=== PATIENT | female | born 1970 | race Hispanic/Latino ===

== ENCOUNTER 2020-08-13 14:53 | Emergency (ER) | payer OTHER ==
[~2020-08-13] VITALS: Ht 149.9 cm; Wt 115.7 kg
[~2020-08-13 14:53] MED LIST: LOSARTAN POTASS25 MG PEG
--- OUTSIDE RECORDS SUMMARY | 2020-08-13 15:57 | XMS REPORT | Continuity of Care Document ---
Author Author [facility] Organization [facility] Address [address] [place] [address] Phone Unavailable Care Team Providers [employer] Officer Name Role Phone Unavailable Unavailable Payers Payer Name Policy Type Policy Number Effective Date Expiration Date S ource Problems This patient has no known problems. Allergies, Adverse Reactions, Alerts Allergy Name Allergy Type Status Severity Reaction(s) Onset Date Inacti ve Date Treating Clinician Comments Source Penicillins DA Active 2018-03-04 00:00:00 [facility] pineapple DA Active 2018-03-04 00:00:00 [facility] pineapple FA Active 2018-03-04 00:00:00 [facility] Medications This patient has no known medications. Procedures This patient has no known procedures. Results Test Description Test Time Test Comments Results Result Comments Source TROPONIN-I RAPID 2019-04-30 05:24:00 Test Item TROPONIN-I RAPID (test code = TROPIRAP) 0.00 ng/mL 0.00-0.08 N Performed by certified borematic operator at [facility] Negative: <= 0.08 Positive: >= 0.09An elevated troponin value alone is not sufficient todiagnose a myocardial infarction. Rather, the patient sclinical presentation (history, physical exam) and ECGshould be used in conjunction with troponin in thediagnostic evaluation of suspected myocardial infarction. Aserial sampling protocol is recommended to facilitate the identification of temporal changes in troponin levels characteristic of CA. URINALYSIS [id number] 03:41:00* Test Item Value Reference Range Interpretation Comments UA COLOR (test code = COLU) YELLOW YEL/STRAW UA APPEARANCE (test code = APPU) CLOUDY CLEAR A UA GLUCOSE DIPSTICK (test code = DGLUU) NEGATIVE NEGATIVE UA BILIRUBIN DIPSTICK (test code = BILU) NEGATIVE NEGATIVE UA KETONE DIPSTICK (test code = KETU) NEGATIVE NEGATIVE UA SPECIFIC GRAVITY (test code = SGU) 1.027 1.005-1.030 N UA BLOOD DIPSTICK (test code = RICKY) NEGATIVE NEGATIVE UA PH DIPSTICK (test code = JANEY) 6.0 5.0-7.0 N UA PROTEIN DIPSTICK (test code = PROU) NEGATIVE NEGATIVE UA UROBILINIOGEN DIPSTICK (test code = URO) 0.2 mg/dL 0.2-1.0 UA NITRITE DIPSTICK (test code = RANDY) NEGATIVE NEGATIVE UA LEUKOCYTE ESTERASE DIPSTICK (test code = LEUU) TRACE NEGA TIVE A UA WBC (test code = WBCU) 21-50 WBC/HPF 0-3 A UA RBC (test code = RBCU) 21-50 RBC/HPF 0-3 UA BACTERIA (test code = BACU) TRACE /HPF NONE SEEN UA SQUAMOUS CELLS (test code = SQU) 0-5 /HPF NONE SEEN UA MUCUS (test code = MUCU) TRACE /LPF NONE SEEN B-TYPE NATRIURETIC [id number] 02:09:00* Test Item Value Reference Range Interpretation Comments B-TYPE NATRIURETIC PEPTIDE (test code = BNP) 10.5 PG/ML 0-100 N - XR CHEST 1 [id number] 02:08:00 FAX: Tulio Mcqueen I [phone] [place]: St: [facility] FAX: Omar Rudolph MD [phone] Name: TOMMY CÁRDENAS [facility] : 1970 Age/S: 48/F [address] [place] [address] Unit #: [id number] Loc: [address] [place] [id number] Phys: Omar Rudolph MD Acct: [id number] Dis Date: Status: REG ER PHONE #: [phone] Exam Date: 04/30/2019205 FAX #: [phone] Reason: Chest Pain EXAMS: CPT CODE: [id number] XR CHEST 1 V [id number] Chest, single view dated 04/30/2019. HISTORY: Chest pain. Comparison is made to a prior study dated 07/07/2018. The heart is normal in size. The cardiomediastinal shadow is stable. The lungs appear clear. The pulmonary vasculature is normal in caliber. No acute pleural space abnormalities are detected. IMPRESSION: 1. No radiographic evidence of acute cardiopulmonary disease. SL: 131 at 0208 Reported and signed by: Arley Sheikh M.D. CC: Tulio Walker MD; Omar Rudolph MD Technologist: RT Carissa(R) Trnscrd Date/Time/By: 04/30/2019 (020) : By: GarimaM Orig Print D/T: S: 04/30/2019 (021) PAGE 1 Signed Report BASIC METABOLIC [id number] 02:03:00* Test Item Value Reference Range Interpretation Comments SODIUM (test code = NA) 145 mEq/L 134-147 N POTASSIUM (test code = K) 4.0 mEq/L 3.4-5.0 N CHLORIDE (test code = CL) 108 mEq/L 100-108 N CARBON DIOXIDE (test code = CO2) 32 mEq/L 21-33 N ANION GAP (test code = GAP) 9 0-20 N GLUCOSE (test code = GLU) 109 mg/dL 70-110 N BLOOD UREA NITROGEN (test code = BUN) 23 mg/dL 7-18 H GLOMERULAR FILTRATION RATE (test code = GFR) 106.7 95-105 H Units of measure = ml/min/1.73 m2 CREATININE (test code = CREAT) 0.6 mg/dL 0.6-1.3 N CALCIUM (test code = CA) 8.4 mg/dL 8.0-10.5 N HEPATIC FUNCTION [id number] 02:03:00* Test Item Value Reference Range Interpretation Comments TOTAL PROTEIN (test code = PROT) 7.2 g/dL 6.4-8.2 N ALBUMIN (test code = ALB) 3.40 g/dL 3.4-5.0 N BILIRUBIN TOTAL (test code = BILT) 0.10 mg/dL 0.0-1.0 N BILIRUBIN DIRECT (test code = BILD) < 0.10 MG/DL 0.0-0.30 N BILIRUBIN INDIRECT (test code = BILIND) 0.00 MG/DL SGOT/AST (test code = AST) 14 IUnit/L 15-37 L SGPT/ALT (test code = ALT) 16 IUnit/L 15-65 N ALKALINE PHOSPHATASE TOTAL (test code = ALKP) 97 IUnit/L 20-125 N [id number] 02:03:00* Test Item Value Reference Range Interpretation Comments LIPASE (test code = LIP) 136 IUnit/L 73-393 N [id number] 02:03:00* Test Item Value Reference Range Interpretation Comments TROPONIN-I (test code = TROPI) < 0.015 ng/mL 0.000-0.045 N Negative: <= 0.045 Positive: >= 0.046 Correlation with serial results, other cardiac markers andclinical findings is necessary to determine the clinicalsignificance of this result. Results using different methodologies should not be comparedto one another as quantitative results may vary by method. [id number] 01:55:00* Test Item Value Reference Range Interpretation Comments D-DIMER (test code = DDIMER) 388 ng/mlFEU <=500 N THROMBOSIS AND/OR PULMONARY EMBOLISM AND THE CLINICAL CUT- OFF VALUE FOR EXCLUSION (500 ng/mL FEU) OF THESE CONDITIONSIS VALIDATED BY THE RESOURCE TEACHER OF THE METHOD. A NEGATIVE D-DIMER RESULT WHEN COMBINED WITH A CLINICALASSESSMENT OF LOW PRETEST PROBABILITY HAS BEEN SHOWN TO HAVEA HIGH NEGATIVE PREDICTIVE VALUE OF DVT OR PE. D-DIMER VALUES >500 ng/mL FEU ARE NOT DIAGNOSTIC FOR DVT, PEor DIC WITHOUT OTHER CONFIRMATORY TESTS AND APPROPRIATECLINICAL EUALUATIONS. CBC W/AUTO [id number] 01:46:00* Test Item Value Reference Range Interpretation Comments WHITE BLOOD CELL (test code = WBC) 6.56 x10 3/uL 4.5-11.0 N RED BLOOD CELL (test code = RBC) 3.98 x10 6/uL 3.54-5.02 N HEMOGLOBIN (test code = HGB) 11.2 g/dL 11.0-15.0 N HEMATOCRIT (test code = HCT) 35.2 % 33.0-45.0 N MEAN CELL VOLUME (test code = MCV) 88.4 fL 81.0-99.0 N MEAN CELL HGB (test code = MCH) 28.1 pg 27.0-33.0 N MEAN CELL HGB CONCETRATION (test code = MCHC) 31.8 g/dL 33.0-37. 0 L RED CELL DISTRIBUTION WIDTH CV (test code = RDW) 13.9 % 11.5- 14.5 N RED CELL DISTRIBUTION WIDTH SD (test code = RDW-SD) 45.3 fL 37 .0-54.0 N PLATELET COUNT (test code = PLT) 270 x10 3/uL 150-400 N MEAN PLATELET VOLUME (test code = MPV) 9.9 fL 7.0-9.0 H NEUTROPHIL % (test code = NT%) 59.3 % 56.0-77.0 N IMMATURE GRANULOCYTE % (test code = IG%) 0.3 % 0.0-2.0 N LYMPHOCYTE % (test code = LY%) 31.7 % 14.0-32.0 N MONOCYTE % (test code = MO%) 7.6 % 4.8-9.0 N EOSINOPHIL % (test code = EO%) 0.8 % 0.3-3.7 N BASOPHIL % (test code = BA%) 0.3 % 0.0-2.0 N NUCLEATED RBC % (test code = NRBC%) 0.0 % 0-0 N NEUTROPHIL # (test code = NT#) 3.89 x10 3/uL 2.0-7.6 N IMMATURE GRANULOCYTE # (test code = IG#) 0.02 x10 3/uL 0.00-0.03 N LYMPHOCYTE # (test code = LY#) 2.08 x10 3/uL 1.0-3.8 N MONOCYTE # (test code = MO#) 0.50 x10 3/uL 0.1-0.8 N EOSINOPHIL # (test code = EO#) 0.05 x10 3/uL 0.0-0.2 N BASOPHIL # (test code = BA#) 0.02 x10 3/uL 0.0-0.2 N NUCLEATED RBC # (test code = NRBC#) 0.00 x10 3/uL 0.0-0.1 N MANUAL DIFF REQUIRED (test code = MDIFF) NO - DUP VEIN [id number] 22:44:00 Name: TOMMY CÁRDENAS [facility] : 1970 Age/S: 48 / F [address] [place] [address] Unit #: [id number] Loc: [place] [address] Phys: Chris Jordan Acct: [id number] Dis Date: Status: REG ER PHONE #: [phone] Exam Date: 11/23/20182226 FAX #: [phone] Reason: RLE SWELLING AND PAIN EXAMS: CPT CODE: [id number] DUP VEIN UNI/LTD 68651 PROCEDURE: RIGHT UNILATERAL LOWER EXTREMITY VENOUS ULTRASOUND INDICATION: Acute generalized edema of the right leg. Acute right leg pain and tenderness. COMPARISON: None. TECHNIQUE: Sonographic evaluation of the right lower extremity veins was performed using high resolution B-mode, pulse and color Doppler imaging. FINDINGS: The common femoral, femoral, popliteal and visualized calf veins are patent. Normal venous waveforms. The saphenofemoral junction is unremarkable. IMPRESSION: 1. No deep venous thrombosis in the right leg. SL:01 at 2244 Reported and signed by: Anthony Quinn M.D. CC: Rossy Santizo MD; Chris RAMOS Technologist: Whit Rizvi RDMS(Randal)(OB) Trnscb Date/Time: 11/23/2018 (7191) KleberJ Orig Print D/T: S: 11/23/2018 (9325) Probe: PAGE 1 Signed Report - XR KNEE 1 OR 2 V [id number] 22:39:00 FAX: Rossy Velasquez MD [phone] [place]: St: REG FAX: Chris Jordan [phone] Name: TOMMY CÁRDENAS [facility] : 1970 Age/S: 48/F [address] [place] [address] Unit #: [id number] Loc: [place] [place] [address] Phys: Chris Jordan Acct: [id number] Dis Date: Status: REG ER PHONE #: [phone] Exam Date: 11/23/20182237 FAX #: [phone] Reason: L knee pain and swelling EXAMS: CPT CODE: [id number] XR KNEE 1 OR 2 V [place] [address]74 Clinical Indication: L knee pain and swelling; Comparison: None FINDINGS: AP, and lateral 2 views of the right knee show normal alignment without fractures or dislocations. Severe d egenerative changes are seen in the tricompartment joint spaces, most sign ificant in the medial and patellofemoral compartment. The medial and late ral tibiofemoral compartments and patellofemoral compartment are unr emarkable. There are no joint bodies. There is mild knee region soft tissu e swelling. There is a small joint effusion. There are no radiopaque forei gn bodies. If there is further concern, recommend follow-up radio graphs or MRI for complete assessment. IMPRESSION: 1. No acute fracture or dislocation of the right knee. 2. Severe osteo arthritis of the right knee. SL: [id number] Electronically Signed by Michael Zabala on 019 at 2239 Reported and signed by: Aaron Zabala M.D. CC: Rossy Santizo MD; Chris RAMOS Technolog ist: RT Keo(R)(M) Trnscrd Date/Time/By : 11/23/2018 (4429) : By: KaileeLNV Orig Print D/T: S: 11/23/2018 (224 3) PAGE 1 Signed Report
[2020-08-13] MEDS ORDERED: KETOROLAC TROMETHAMINE 30 MG/ML VIAL IV STA (16:32)
[2020-08-13] MEDS ORDERED: KETOROLAC TROMETHAMINE 30 MG/ML VIAL ONE (16:35)
--- NOTE | 2020-08-13 16:37 | Diagnostic Imaging Report ---
EXAM: EXAM: CT ABDOMEN AND PELVIS WITHOUT CONTRAST FOR RENAL STONES CLINICAL INDICATION: Right lower quadrant pain TECHNIQUE: CT abdomen and pelvis was performed, without IV or oral contrast, as per department renal stone protocol. Axial, sagittal, and coronal reconstructions were obtained. IV CONTRAST: Not administered, limiting sensitivity of this exam for evaluation of solid visceral organs, vascular structures, and retroperitoneum. ORAL CONTRAST:Not administered, limiting sensitivity of this exam for evaluation of bowel, retroperitoneum, and intraabdominal fluid collections. RADIATION DOSE REDUCTION: This exam was performed according to the departmental dose-optimization program which includes automated exposure control, adjustment of the mA and/or kV according to patient size and/or use of iterative reconstruction technique. COMPARISON: None FINDINGS: LOWER CHEST: Minimal discoid atelectasis in the left lung base. RIGHT KIDNEY: Normal size and contour. No nephrolithiasis. No hydronephrosis. RIGHT URETER: Normal course and caliber. No ureterolithiasis. LEFT KIDNEY: Normal size and contour. No nephrolithiasis. No hydronephrosis. LEFT URETER: Normal course and caliber. No ureterolithiasis. URINARY BLADDER: Unremarkable. No calculi. LIVER: No pathologic process. GALLBLADDER: Status post cholecystectomy BILE DUCTS: No pathologic process. PANCREAS: No pathologic process. SPLEEN: No pathologic process. ADRENALS: No pathologic process. GASTROINTESTINAL TRACT: No pathologic process. APPENDIX: No inflammatory changes in region of appendix.] LYMPH NODES: No lymphadenopathy. PERITONEUM/MESENTERY: No free air, significant free fluid, mass or fluid collection. VESSELS: No vascular abnormality. ADDITIONAL RETROPERITONEAL FINDINGS: None. REPRODUCTIVE ORGANS: No pathologic process. ABDOMINAL AND PELVIC ROBISON: Fat-containing nonobstructive umbilical hernia. MUSCULOSKELETAL: Much compression of T11 vertebra ADDITIONAL FINDINGS: None. IMPRESSION: No evidence of urinary tract calculi. Patchy compression of T11 vertebra. Likely chronic. Standardized Report: [id number]. CLINICAL INDICATION: TECHNIQUE: CT abdomen and pelvis was performed, without IV or oral contrast, as per department renal stone protocol. Axial, sagittal, and coronal reconstructions were obtained. IV CONTRAST: Not administered, limiting sensitivity of this exam for evaluation of solid visceral organs, vascular structures, and retroperitoneum. ORAL CONTRAST:Not administered, limiting sensitivity of this exam for evaluation of bowel, retroperitoneum, and intraabdominal fluid collections. RADIATION DOSE REDUCTION: This exam was performed according to the departmental dose-optimization program which includes automated exposure control, adjustment of the mA and/or kV according to patient size and/or use of iterative reconstruction technique. COMPARISON: None FINDINGS: LOWER CHEST: No pathologic process in imaged portion of lower chest RIGHT KIDNEY: Normal size and contour. No nephrolithiasis. No hydronephrosis. RIGHT URETER: Normal course and caliber. No ureterolithiasis. LEFT KIDNEY: Normal size and contour. No nephrolithiasis. No hydronephrosis. LEFT URETER: Normal course and caliber. No ureterolithiasis. URINARY BLADDER: Unremarkable. No calculi. LIVER: No pathologic process. GALLBLADDER: BILE DUCTS: No pathologic process. PANCREAS: No pathologic process. SPLEEN: No pathologic process. ADRENALS: No pathologic process. GASTROINTESTINAL TRACT: No pathologic process. APPENDIX: No inflammatory changes in region of appendix.] LYMPH NODES: No lymphadenopathy. PERITONEUM/MESENTERY: No free air, significant free fluid, mass or fluid collection. VESSELS: No vascular abnormality. ADDITIONAL RETROPERITONEAL FINDINGS: None. REPRODUCTIVE ORGANS: No pathologic process. ABDOMINAL AND PELVIC ROBISON: No pathologic process. MUSCULOSKELETAL: No pathologic process. ADDITIONAL FINDINGS: None. IMPRESSION: No evidence of urinary tract calculi. Standardized Report: [id number]. Signed by: Aiden Mims MD on 08/13/2020 4:33 PM
--- NOTE | 2020-08-13 16:44 | Emergency Department Note ---
History of Present Illnes History of Present Illness Chief Complaint: Abdominal Complaints History of Present Illness This is a 49 year old female Chief Complaint Comment PT COMPLAINS OF LRQ AB PAIN THAT STARTED LAST NIGHT PT STATED PAIN RADIATES TO HER RIGHT FLANK, PT DENIES URINARY ISSUES, PT DENIES N/V/D, NO DISTRESS NOTED IN TRIAGE, VITAL SIGNS STABLE . Historian: Patient Arrival Mode: Car Onset (how long ago): day(s) (2) Location: RLQ PAIN Quality: SHARP Radiation: Reports abdomen Severity: moderate Onset quality: gradual Duration (how long): day(s) (2) Timing of current episode: intermittent Progression: waxing and waning Chronicity: new Relieving factors: none Exacerbating factors: none Associated symptoms: Denies denies other symptoms, Denies confusion, Denies chest pain, Denies cough, Denies diaphoresis, Denies fever/chills, Denies headaches, Denies loss of appetite, Denies malaise, Denies nausea/vomiting, Denies rash, Denies seizure, Denies shortness of breath, Denies syncope, Denies weakness, Denies other Treatments prior to arrival: none Past Medical/Family History Physician Review I have reviewed the patient's past medical and family history. Any updates have been documented here. Past Medical History Recent Fever: No Clinical Suspicion of Infectio: No New/Unexplained Change in Ment: No Past Medical History: Hypertension, Diabetes, Osteoarthritis Other Medical History: BREAST CANCER ARTHRITIS NEUROPATHY Past Surgical History: Cholecysctectomy, Other Surgery: LEFT LUMPECTOMY Social History Smoking Cessation: Never Smoker Counseling Performed: No Alcohol Use: None Any Illegal Drug Use: No Physically hurt or threatened: No Other Any Pre-Existing Lines (PICC,: No Review of Systems Review of Systems Constitutional: Reports no symptoms EENTM: Reports no symptoms Cardiovascular: Reports no symptoms Respiratory: Reports no symptoms Gastrointestinal: Reports as per HPI Genitourinary: Reports no symptoms Musculoskeletal: Reports no symptoms Integumentary: Reports no symptoms Neurological: Reports no symptoms Psychological: Reports no symptoms Endocrine: Reports no symptoms Hematological/Lymphatic: Reports no symptoms Physical Exam Related Data Allergies: Coded Allergies: Penicillins (Verified Allergy, Intermediate, RASH, ITCHING, 03/10/15) Triage Vital Signs Vital Signs Date Time Temp Pulse Resp B/P (MAP) Pulse Ox O2 Delivery O2 Flow Rate FiO2 08/13/20 15:13 98.2 81 20 142/64 98 Room Air Vital signs reviewed: Yes Physical Exam CONSTITUTIONAL Constitutional: Present well-developed, Present well-nourished HENT HENT: Present normocephalic, Present atraumatic, Present oropharynx clear/moist, Present nose normal HENT L/R: Present left ext ear normal, Present right ext ear normal; Absent left TM normal, Absent right TM normal, Absent left canal normal, Absent right canal normal, Absent left impacted cerumen, Absent right impacted cerumen, Absent left bulging TM, Absent right bulging TM, Absent other EYES Eyes: Reports PERRL, Reports conjunctivae normal; Denies EOM normal, Denies lids normal, Denies left eye discharge, Denies right eye discharge, Denies scleral icterus, Denies other NECK Neck: Present ROM normal; Absent supple, Absent thyromegaly, Absent tracheal deviation, Absent stridor, Absent JVD, Absent cervical adenopathy, Absent carotid bruit, Absent other PULMONARY Pulmonary: Present effort normal, Present breath sounds normal; Absent respiratory distress, Absent rales, Absent rhonchi, Absent chest tenderness, Absent other CARDIOVASCULAR Cardiovascular: Present regular rhythm, Present heart sounds normal, Present capillary refill normal, Present normal rate; Absent irregular rhythm, Absent intact distal pulses, Absent tachycardia, Absent bradycardia, Absent murmur, Absent gallop, Absent friction rub, Absent palpable pulses, Absent strong pulses, Absent weak pulses, Absent LLE edema, Absent RLE edema, Absent other GASTROINTESTINAL Abdominal: Present soft, Present nontender, Present bowel sounds normal GENITOURINARY Genitourinary: Present exam deferred SKIN Skin: Present warm, Present dry MUSCULOSKELETAL Musculoskeletal: Present ROM normal NEUROLOGICAL Neurological: Present alert, Present oriented x 3, Present no gross motor or sensory deficits PSYCHOLOGICAL Psychological: Present mood/affect normal, Present judgement normal Results Laboratory Lab results reviewed: Yes Imaging Imaging results reviewed: Yes Assessment & Plan Medical Decision Making MDM APPENDICITIS RENAL COLIC Reassessment Reassessment BETTER Assessment & Plan Final Impression: (1) Abdominal pain, right lower quadrant Depart Disposition: HOME, SELF-CARE Last Vital Signs Date Time Temp Pulse Resp B/P (MAP) Pulse Ox O2 Delivery O2 Flow Rate FiO2 08/13/20 15:13 98.2 81 20 142/64 98 Room Air Home Meds Active Scripts Ketorolac Tromethamine (TORADOL) 10 Mg Tablet, 10 MG PO TID for pain, #15 Prov:SUDHIR ROBLES MD 08/13/20 Ciprofloxacin Hcl (CIPRO) 500 Mg Tablet, 500 MG PO Q12H, #10 TAB Prov:SUDHIR ROBLSE MD 08/13/20 Reported Medications Losartan Potassium (LOSARTAN POTASSIUM) 25 Mg Tablet, 25 MG PEG DAILY 03/10/15 Medications in the ED Ketorolac Tromethamine 30 mg STK-MED ONCE .ROUTE ; Start 08/13/20 at 16:35; Stop 08/13/20 at 16:30; Status DC Ketorolac Tromethamine 30 mg ONCE STAT IV Last administered on 08/13/20at 16:42; Admin Dose 30 MG; Start 08/13/20 at 16:32; Stop 08/13/20 at 16:34; Status DC SUDHIR ROBLES MD Aug 13, 2020 16:44
[2020-08-13] MEDS ORDERED: KETOROLAC TROME10 MG PO (16:47)
[2020-08-13] MEDS ORDERED: CIPRO500 MG PO (16:47)
[2020-08-13 16:48] VITALS: BP 137/62
== END 2020-08-13 16:57 | disposition home or self-care (01) ==
LOC: FSED 15:30
DX: R10.31 Right lower quadrant pain (principal); I10 Essential (primary) hypertension; E11.40 Type 2 diabetes mellitus with diabetic neuropathy, unspecified; Z85.3 Personal history of malignant neoplasm of breast
CPT/HCPCS: 74176; 80053; 80076; 81003; 81025; 85025; 99284; J1885

== ENCOUNTER 2020-11-16 16:13 | Emergency (ER) | payer OTHER ==
[~2020-11-16] VITALS: Ht 149.9 cm; Wt 117.9 kg
[~2020-11-16 16:13] MED LIST changes: +CIPRO500 MG PO; +KETOROLAC TROME10 MG PO
[2020-11-16] MEDS ORDERED: ZOLOFT50 MG PO (16:23)
[2020-11-16 18:48] VITALS: BP 137/75
== END 2020-11-16 18:52 | disposition home or self-care (01) ==
LOC: FSED 16:22
DX: R06.00 Dyspnea, unspecified (principal); R00.2 Palpitations; E11.40 Type 2 diabetes mellitus with diabetic neuropathy, unspecified; I10 Essential (primary) hypertension; Z85.3 Personal history of malignant neoplasm of breast
CPT/HCPCS: 71045; 80053; 83880; 93005; 99284

== ENCOUNTER 2021-05-13 21:23 | Emergency (ER) | payer OTHER ==
[~2021-05-13] VITALS: Ht 149.9 cm; Wt 117.9 kg
[~2021-05-13 21:23] MED LIST changes: +ZOLOFT50 MG PO
[2021-05-13] MEDS ORDERED: DEXAMETHASONE SOD PHOS INJ 4 MG/ML VIAL IM ONE (22:45)
[2021-05-13] MEDS ORDERED: FLUOCINONIDE15 GM TOP (22:57)
[2021-05-13] MEDS ORDERED: CEPHALEXIN500 MG PO (22:57)
[2021-05-13] MEDS ORDERED: DEXAMETHASONE SOD PHOS INJ 4 MG/ML VIAL ONE (22:58)
== END 2021-05-13 23:30 | disposition home or self-care (01) ==
LOC: FSED 22:42
DX: L03.311 Cellulitis of abdominal wall (principal); L25.9 Unspecified contact dermatitis, unspecified cause; I10 Essential (primary) hypertension; E11.9 Type 2 diabetes mellitus without complications; M19.91 Primary osteoarthritis, unspecified site; Z85.3 Personal history of malignant neoplasm of breast; Z79.899 Other long term (current) drug therapy
CPT/HCPCS: 99282; J1100

== ENCOUNTER 2021-12-08 13:19 | Emergency (ER) | payer OTHER ==
[~2021-12-08] VITALS: Ht 149.9 cm; Wt 116.7 kg
[~2021-12-08 13:19] MED LIST changes: +CEPHALEXIN500 MG PO; +FLUOCINONIDE15 GM TOP
[2021-12-08] MEDS ORDERED: METOPROLOL SUCC25 MG PO (13:59)
[2021-12-08] MEDS ORDERED: HYDROCHLOROTHIA25 MG PO (13:59)
[2021-12-08] MEDS ORDERED: NEURONTIN300 MG PO (13:59)
[2021-12-08] MEDS ORDERED: METFORMIN HCL500 MG PO (13:59)
[2021-12-08] MEDS ORDERED: TETANUS/DIPHTHERIA TOX ADULT 0.5 ML SYR IM ONE (14:15)
[2021-12-08] MEDS ORDERED: LIDOCAINE HCL 1% LOCAL INJ 20 ML VIAL INJ NR (14:15)
[2021-12-08] MEDS ORDERED: BACITRACIN ZINC 0.9GM TP ONE ×2 (14:15→14:18)
[2021-12-08] MEDS ORDERED: CLEOCIN HCL150 MG PO (14:18)
[2021-12-08] MEDS ORDERED: TETANUS/DIPHTHERIA TOX ADULT 0.5 ML SYR ONE (14:19)
== END 2021-12-08 14:32 | disposition home or self-care (01) ==
LOC: FSED 14:15
DX: S61.211A Laceration without foreign body of left index finger without damage to nail, initial encounter (principal); W26.0XXA Contact with knife, initial encounter; Y92.008 Other place in unspecified non-institutional (private) residence as the place of occurrence of the external cause; I10 Essential (primary) hypertension; E11.9 Type 2 diabetes mellitus without complications; E66.01 Morbid (severe) obesity due to excess calories; Z85.3 Personal history of malignant neoplasm of breast
CPT/HCPCS: 12001; 90471; 90714; 96372; 99283; J2001

== ENCOUNTER 2022-06-29 01:29 | Emergency (ER) | payer OTHER ==
[~2022-06-29] VITALS: Ht 149.9 cm; Wt 117.9 kg
[~2022-06-29 01:29] MED LIST changes: +CLEOCIN HCL150 MG PO; +HYDROCHLOROTHIA25 MG PO; +METFORMIN HCL500 MG PO; +METOPROLOL SUCC25 MG PO; +NEURONTIN300 MG PO
[2022-06-29] MEDS ORDERED: KETOROLAC TROMETHAMINE 30 MG/ML VIAL IV ONE (02:30)
[2022-06-29] MEDS ORDERED: KETOROLAC TROMETHAMINE 30 MG/ML VIAL ONE (02:57)
[2022-06-29] MEDS ORDERED: KETOROLAC TROMETHAMINE 30 MG/ML VIAL IM STA (03:20)
[2022-06-29] MEDS ORDERED: CYCLOBENZAPRINE10 MG PO (04:51)
[2022-06-29 05:00] VITALS: BP 164/76
[2022-06-29] MEDS ORDERED: CYCLOBENZAPRINE HCL 10 MG TAB PO ONE (05:00)
== END 2022-06-29 05:00 | disposition home or self-care (01) ==
LOC: FSED 01:42
DX: M79.604 Pain in right leg (principal); M79.89 Other specified soft tissue disorders; I10 Essential (primary) hypertension; E11.40 Type 2 diabetes mellitus with diabetic neuropathy, unspecified; E66.01 Morbid (severe) obesity due to excess calories; Z85.3 Personal history of malignant neoplasm of breast
CPT/HCPCS: 80048; 85025; 85610; 93971; 96372; 99283; J1885